=== PATIENT | male | born 1980 | race Caucasian/White ===

== ENCOUNTER 2017-09-01 16:29 | Emergency (ER) | payer SELFPAY, OTHER ==
[2017-09-01 21:09] LABS: ADD MAN DIFF? NO
[2017-09-01 21:12] LABS: ABNORMAL IP MESSAGE 1; BASOPHILS % 0.2 % (0.0-2.0); HEMATOCRIT 43.5 % (42.0-52.0); HEMOGLOBIN 15.1 g/dl (14.0-18.0); LYMPHOCYTES # 0.5 10^3/ul (0.8-2.9); MEAN CORPUSCULAR HEMOGLOBIN 31.3 pg (29.0-33.0); MEAN CORPUSCULAR HGB CONC 34.7 g/dl (32.0-37.0); MEAN CORPUSCULAR VOLUME 90.1 fl (82.0-101.0); MEAN PLATELET VOLUME 9.4 fl (7.4-10.4); MONOCYTE # 0.8 10^3/ul (0.3-0.9); MONOCYTES % 8.3 % (0.0-11.0); NEUTROPHIL # 8.7 10^3/ul (1.6-7.5); NEUTROPHILS % 86.2 % (39.0-77.0); PLATELET COUNT 217 10^3/UL (140-415); POSITIVE DIFF @See below; RED BLOOD COUNT 4.83 10^6/ul (4.70-6.10); RED CELL DISTRIBUTION WIDTH 15.5 % (11.5-14.5)
[2017-09-01] MEDS: KETOROLAC 30 MG INJ IV (21:12)
[2017-09-01] MEDS: ASPIRIN 325 MG TAB PO (21:12)
[2017-09-01] MEDS: SOD CHLORIDE 0.9% 1,000 ML IV (21:13)
[2017-09-01] MEDS: LORAZEPAM 2 MG INJ IV (21:13)
[2017-09-01 21:32] LABS: INR 0.93; PROTIME 12.5 Sec (11.9-14.9)
[2017-09-01 21:33] LABS: PARTIAL THROMBOPLASTIN TIME 26.7 Sec (25.0-35.0)
[2017-09-01 21:43] LABS: ALANINE AMINOTRANSFERASE 94 IU/L (13-69); ALBUMIN 4.9 g/dl (3.3-4.9); ALBUMIN/GLOBULIN RATIO 1.28; ALKALINE PHOSPHATASE 118 IU/L (42-121); ANION GAP 18 (8-16); ASPARTATE AMINO TRANSFERASE 117 IU/L (15-46); BILIRUBIN,INDIRECT 0.5 mg/dl (0-1.1); BILIRUBIN,TOTAL 0.5 mg/dl (0.2-1.3); BLOOD UREA NITROGEN 7 mg/dl (7-20); CALCIUM 9.4 mg/dl (8.4-10.2); CARBON DIOXIDE 27 mmol/L (21-31); CHLORIDE 98 mmol/L (97-110); CREATINE KINASE 342 IU/L (23-200); CREATININE 0.77 mg/dl (0.61-1.24); GLUCOSE 126 mg/dl (70-220); POTASSIUM 3.8 mmol/L (3.5-5.1); SODIUM 139 mmol/L (135-144); TOTAL PROTEIN 8.7 g/dl (6.1-8.1)
[2017-09-01 21:55] LABS: B-TYPE NATRIURETIC PEPTIDE 26 PG/ML (0-125); CK INDEX 0.6; CK-MB 2.09 ng/ml (0.0-2.4); TROPONIN-I < 0.010 ng/ml (0.000-0.120)
== END 2017-09-01 22:55 | disposition home or self-care (01) ==
LOC: E/R 16:29
DX: M94.0 Chondrocostal junction syndrome [Tietze] (principal); F43.0 Acute stress reaction; R07.9 Chest pain, unspecified
CPT/HCPCS: 71045; 80053; 82550; 82553; 83880; 84484; 85025; 85610; 85730; 93005; 96374; 96375; 99285-25

== ENCOUNTER 2017-09-02 06:58 | Emergency (ER) | payer MEDICAID ==
[2017-09-02] MEDS: OXYCODONE/ACETAMINOPHEN (5/325) TAB PO (08:00)
== END 2017-09-02 08:36 | disposition home or self-care (01) ==
LOC: FTE 06:58 → E/R 08:36
DX: R07.9 Chest pain, unspecified (principal); F41.9 Anxiety disorder, unspecified
CPT/HCPCS: 99283; Z7502

== ENCOUNTER 2017-09-02 09:18 | Emergency (ER) | payer SELFPAY, MEDICAID | END 2017-09-02 10:30 | disposition left against medical advice (07) | LOC: E/R 09:18 | DX: Z53.21 Procedure and treatment not carried out due to patient leaving prior to being seen by health care provider (principal) | CPT/HCPCS: 93005 ==

== ENCOUNTER 2017-09-18 13:49 | Emergency (ER) | payer MEDICAID ==
[2017-09-18] MEDS: LORAZEPAM 1 MG TAB PO (14:21)
== END 2017-09-18 16:26 | disposition home or self-care (01) ==
LOC: E/R 13:49
DX: F41.9 Anxiety disorder, unspecified (principal); R00.2 Palpitations; F10.10 Alcohol abuse, uncomplicated; Z87.891 Personal history of nicotine dependence
CPT/HCPCS: 93005; 99283; Z7610

== ENCOUNTER 2017-11-09 10:46 | Emergency (ER) | payer SELFPAY, MEDICAID | END 2017-11-09 11:47 | disposition home or self-care (01) | LOC: FTE 10:46 | DX: F41.9 Anxiety disorder, unspecified (principal); R20.2 Paresthesia of skin; F17.210 Nicotine dependence, cigarettes, uncomplicated | CPT/HCPCS: 99283 ==